=== PATIENT | female | born 1965 | race Caucasian/White ===

== ENCOUNTER → 2022-01-19 | Outpatient (CLI) | payer BC ==
--- NOTE | 2022-01-19 10:17 | RAD ---
EXAM: AP, lateral and oblique views of bilateral knees DATE: 01/19/2022 10:00 AM INDICATION: Reason: Worsening chronic knee pain. / Spl. Instructions: / History: COMPARISON: No Prior FINDINGS: Right knee: No acute fracture or dislocation. No joint effusion. Joint spaces are preserved and the medial later al compartment with tricompartmental osteophytes. Severe patellofemoral joint space narrowing. Left knee: No evidence of acute fracture or dislocation. No knee joint effusion. Small medial and lateral compar tment osteophytes with preserved joint spaces. Severe patellofemoral joint space narrowing with subch ondral cystic change. IMPRESSION: 1. No acute fracture or dislocation. 2. Severe patellofemoral joint space narrowing with subchondral cystic change bilaterally. Electronically signed by: Tobias Maher MD (01/19/2022 10:15 AM) [id number]
== END ==
LOC: RAD 09:53
PROVIDERS: ATTEND Family Medicine
DX: M25.761 Osteophyte, right knee (principal); M25.762 Osteophyte, left knee; M25.861 Other specified joint disorders, right knee; M25.862 Other specified joint disorders, left knee
CPT/HCPCS: 73562-50